=== PATIENT | male | born 1975 | race African-American/Black ===

== ENCOUNTER 2023-02-12 11:02 | Inpatient (IN) | payer OTHER ==
[2023-02-12 16:27] VITALS: BMI 18.1
[2023-02-12] MEDS ORDERED: DICYCLOMINE HCL 10 MG CAPSULE PO PRN (17:20)
[2023-02-12] MEDS ORDERED: BENZONATATE 200 MG CAPSULE PO PRN (17:20)
[2023-02-12] MEDS ORDERED: BENZOCAINE/MENTHOL (CHLORASEPTIC ) LOZENGE MM PRN (17:20)
[2023-02-12] MEDS ORDERED: BISMUTH SUBSALICYLATE 524 MG/30 ML PO PRN (17:20)
[2023-02-12] MEDS ORDERED: hydrOXYzine PAMOATE 25 MG CAPSULE (FP) PO PRN (17:20)
[2023-02-12] MEDS ORDERED: POLYETHYLENE GLYCOL (HEALTHYLAX) 3350 17 GM PACKET PO PRN (17:20)
[2023-02-12] MEDS ORDERED: NALOXONE HCL 0.4 MG/ML VIAL IM PRN (17:20)
[2023-02-12] MEDS ORDERED: MAG HYDROX/AL HYDROX/SIMETH 30 ML UNIT-DOSE CUP PO PRN (17:20)
[2023-02-12] MEDS ORDERED: IBUPROFEN 600 MG TABLET (FP) PO PRN (17:20)
[2023-02-12] MEDS ORDERED: MAGNESIUM HYDROX 2400MG/30ML ORAL SUSPENSION 30 ML CUP PO PRN (17:20)
[2023-02-12] MEDS ORDERED: NICOTINE 10 MG CARTRIDGE (INHALER) IH PRN (17:20)
[2023-02-12] MEDS ORDERED: guaiFENesin 600 MG TABLET.ER (FP) PO PRN (17:20)
[2023-02-12] MEDS ORDERED: METHOCARBAMOL 500 MG TABLET PO PRN (17:20)
[2023-02-12] MEDS ORDERED: NALOXONE HCL (KLOXXADO) 8 MG SPRAY NS PRN (17:20)
[2023-02-12] MEDS ORDERED: IBUPROFEN 400 MG TABLET (FP) PO PRN (17:20)
[2023-02-12] MEDS ORDERED: ACETAMINOPHEN 325 MG TABLET (FP) PO PRN (17:20)
[2023-02-12] MEDS ORDERED: ONDANSETRON *ODT* 4 MG TABLET SL PRN (17:20)
[2023-02-12] MEDS ORDERED: LOPERAMIDE HCL 2 MG CAPSULE PO PRN (17:20)
[2023-02-12] MEDS: NICOTINE 14 MG/24 HOURS TOPICAL PATCH TD SCH (18:26)
[2023-02-12] MEDS: PRENATAL VITAMINS W/ FOLIC ACID TABLET (FP) PO SCH (18:26)
[2023-02-12] MEDS: MELATONIN 5 MG TABLETS PO SCH (22:30)
[2023-02-12] MEDS: THIAMINE HCL 100 MG TABLET (FP) PO SCH (22:30)
[2023-02-13] MEDS ORDERED: chlordiazePOXIDE HCL 25 MG CAPSULE PO PRN (09:00)
[2023-02-13] MEDS: PRENATAL VITAMINS W/ FOLIC ACID TABLET (FP) PO SCH (10:14)
[2023-02-13] MEDS: chlordiazePOXIDE HCL 25 MG CAPSULE PO SCH ×3 (10:14→22:22)
[2023-02-13] MEDS: NICOTINE 14 MG/24 HOURS TOPICAL PATCH TD SCH (10:14)
[2023-02-13 11:53] LABS: HEMATOCRIT 36.1 % (35.4-49); HEMOGLOBIN 12.2 GM/dL (11.7-16.9); MCH 32.3 pg (25.7-33.7); MCHC 33.6 g/dl (32.0-35.9); MEAN PLT VOLUME 10.8 fl (7.5-11.1); PLATELET COUNT 92 10^3/uL (134-434); RBC 3.77 M/mm3 (4.00-5.60); RDW 15.4 % (11.9-15.9); WHITE BLOOD COUNT 3.6 K/mm3 (4.0-10.0)
[2023-02-13 12:30] LABS: POTASSIUM 4.1 mmol/L (3.5-5.1)
[2023-02-13 12:34] LABS: ALBUMIN 3.5 g/dl (3.4-5.0); CALCIUM 9.4 mg/dL (8.5-10.1)
[2023-02-13 12:38] LABS: CREATININE 0.8 mg/dL (0.55-1.3)
[2023-02-13 12:39] LABS: BILIRUBIN,TOTAL 1.9 mg/dL (0.2-1); TOT PROT 6.6 g/dl (6.4-8.2)
[2023-02-13] MEDS: AMOXICILLIN 500 MG CAPSULE (FP) PO SCH ×2 (13:46→22:22)
[2023-02-13] MEDS: MELATONIN 5 MG TABLETS PO SCH (22:22)
[2023-02-13] MEDS: THIAMINE HCL 100 MG TABLET (FP) PO SCH (22:22)
[2023-02-14] MEDS: AMOXICILLIN 500 MG CAPSULE (FP) PO SCH (05:26)
[2023-02-14] MEDS: chlordiazePOXIDE HCL 25 MG CAPSULE PO SCH ×2 (05:26→10:33)
[2023-02-14 06:10] VITALS: RESP 16
[2023-02-14 09:29] VITALS: BP 122/77; PULSE 80; TEMP 97.8
[2023-02-14] MEDS: NICOTINE 14 MG/24 HOURS TOPICAL PATCH TD SCH (10:33)
[2023-02-14] MEDS: PRENATAL VITAMINS W/ FOLIC ACID TABLET (FP) PO SCH (10:33)
[2023-02-14 12:06] LABS: POTASSIUM 4.1 mmol/L (3.5-5.1)
[2023-02-14 12:11] LABS: ALBUMIN 3.4 g/dl (3.4-5.0); BLOOD UREA NITROGEN 12.6 mg/dL (7-18); CALCIUM 9.6 mg/dL (8.5-10.1)
[2023-02-14 12:14] LABS: CREATININE 0.7 mg/dL (0.55-1.3)
[2023-02-14 12:16] LABS: BILIRUBIN,TOTAL 1.2 mg/dL (0.2-1); TOT PROT 6.8 g/dl (6.4-8.2)
[2023-02-15] MEDS ORDERED: chlordiazePOXIDE HCL 25 MG CAPSULE PO SCH (05:00)
[2023-02-16] MEDS ORDERED: chlordiazePOXIDE HCL 10 MG CAPSULE PO PRN
[2023-02-16] MEDS ORDERED: chlordiazePOXIDE HCL 10 MG CAPSULE PO SCH (05:00)
[2023-02-17] MEDS ORDERED: chlordiazePOXIDE HCL 10 MG CAPSULE PO SCH (05:00)
[2023-02-18] MEDS ORDERED: chlordiazePOXIDE HCL 10 MG CAPSULE PO ONE (05:00)
== END 2023-02-14 10:38 | disposition left against medical advice (07) | DRG 770 ==
LOC: YASAS 11:02 → Y3N 17:25
PROVIDERS: ADMIT Allergy & Immunology; ATTEND Surgery
PROC: HZ2ZZZZ Detoxification Services for Substance Abuse Treatment (ICD-10-PCS; principal; 2023-02-12)
DX: F10.230 Alcohol dependence with withdrawal, uncomplicated (principal); F12.20 Cannabis dependence, uncomplicated; F17.210 Nicotine dependence, cigarettes, uncomplicated; F41.9 Anxiety disorder, unspecified; F32.A Depression, unspecified; R74.8 Abnormal levels of other serum enzymes; S01.01XD Laceration without foreign body of scalp, subsequent encounter; S01.511D Laceration without foreign body of lip, subsequent encounter; L08.9 Local infection of the skin and subcutaneous tissue, unspecified; Y08.89XD Assault by other specified means, subsequent encounter
CPT/HCPCS: 36415; 70450-TC; 80053; 85027; 86780; 87635; 93005; 93010; 99283-25

== ENCOUNTER 2023-05-03 14:50 | Inpatient (IN) | payer OTHER ==
[2023-05-03] MEDS ORDERED: COLLOIDAL OATMEAL 1 BAR EACH TP PRN (16:03)
[2023-05-03] MEDS ORDERED: NALOXONE HCL (KLOXXADO) 8 MG SPRAY NS PRN (16:03)
[2023-05-03] MEDS ORDERED: guaiFENesin 600 MG TABLET.ER (FP) PO PRN (16:03)
[2023-05-03] MEDS ORDERED: POLYETHYLENE GLYCOL (HEALTHYLAX) 3350 17 GM PACKET PO PRN (16:03)
[2023-05-03] MEDS ORDERED: IBUPROFEN 600 MG TABLET (FP) PO PRN (16:03)
[2023-05-03] MEDS ORDERED: ACETAMINOPHEN 325 MG TABLET (FP) PO PRN (16:03)
[2023-05-03] MEDS ORDERED: NALOXONE HCL 0.4 MG/ML VIAL IVPUSH PRN (16:03)
[2023-05-03] MEDS ORDERED: IBUPROFEN 400 MG TABLET (FP) PO PRN (16:03)
[2023-05-03] MEDS ORDERED: MAGNESIUM HYDROX 2400MG/30ML ORAL SUSPENSION 30 ML CUP PO PRN (16:03)
[2023-05-03] MEDS ORDERED: BENZONATATE 200 MG CAPSULE PO PRN (16:03)
[2023-05-03] MEDS ORDERED: BACLOFEN 10 MG TABLET (FP) PO PRN (16:03)
[2023-05-03] MEDS ORDERED: LOPERAMIDE HCL 2 MG CAPSULE PO PRN (16:03)
[2023-05-03] MEDS ORDERED: BENZOCAINE/MENTHOL (CHLORASEPTIC ) LOZENGE MM PRN (16:03)
[2023-05-03] MEDS ORDERED: MAG HYDROX/AL HYDROX/SIMETH 30 ML UNIT-DOSE CUP PO PRN (16:03)
[2023-05-03] MEDS: NICOTINE POLACRILEX 4 MG GUM BUC PRN ×2 (19:08→21:35)
[2023-05-03] MEDS: hydrOXYzine PAMOATE 25 MG CAPSULE (FP) PO PRN (19:10)
[2023-05-03] MEDS: MELATONIN 5 MG TABLETS PO SCH (21:33)
[2023-05-03] MEDS: GABAPENTIN 100 MG CAPSULE PO SCH (21:34)
[2023-05-03] MEDS: THIAMINE HCL 100 MG TABLET (FP) PO SCH (21:34)
[2023-05-03] MEDS: MIRTAZAPINE 30 MG TABLET PO SCH (21:34)
[2023-05-03] MEDS ORDERED: MIRTAZAPINE 15 MG TABLET (FP) PO SCH (22:00)
[2023-05-04] MEDS: NICOTINE POLACRILEX 4 MG GUM BUC PRN ×3 (07:02→18:03)
[2023-05-04] MEDS: GABAPENTIN 100 MG CAPSULE PO SCH ×3 (07:02→21:33)
[2023-05-04] MEDS: PRENATAL VITAMINS W/ FOLIC ACID TABLET (FP) PO SCH (10:47)
[2023-05-04] MEDS: hydrOXYzine PAMOATE 25 MG CAPSULE (FP) PO PRN ×2 (10:50→19:40)
[2023-05-04] MEDS: NICOTINE 21 MG/24 HOURS TOPICAL PATCH TD SCH (10:51)
[2023-05-04 11:51] LABS: HIV INTERPRETATION NEGATIVE (NEGATIVE)
[2023-05-04] MEDS: THIAMINE HCL 100 MG TABLET (FP) PO SCH (21:33)
[2023-05-04] MEDS: MIRTAZAPINE 30 MG TABLET PO SCH (21:33)
[2023-05-04] MEDS: MELATONIN 5 MG TABLETS PO SCH (21:33)
[2023-05-05] MEDS: NICOTINE POLACRILEX 4 MG GUM BUC PRN ×4 (06:49→21:41)
[2023-05-05] MEDS: GABAPENTIN 100 MG CAPSULE PO SCH ×3 (06:49→21:39)
[2023-05-05] MEDS: NICOTINE 21 MG/24 HOURS TOPICAL PATCH TD SCH (10:04)
[2023-05-05] MEDS: PRENATAL VITAMINS W/ FOLIC ACID TABLET (FP) PO SCH (10:04)
[2023-05-05] MEDS: hydrOXYzine PAMOATE 25 MG CAPSULE (FP) PO PRN (10:05)
[2023-05-05] MEDS: MIRTAZAPINE 30 MG TABLET PO SCH (21:39)
[2023-05-05] MEDS: MELATONIN 5 MG TABLETS PO SCH (21:39)
[2023-05-05] MEDS: THIAMINE HCL 100 MG TABLET (FP) PO SCH (21:40)
[2023-05-06] MEDS: GABAPENTIN 100 MG CAPSULE PO SCH ×3 (06:49→21:36)
[2023-05-06] MEDS: NICOTINE POLACRILEX 4 MG GUM BUC PRN ×3 (06:49→18:37)
[2023-05-06] MEDS: PRENATAL VITAMINS W/ FOLIC ACID TABLET (FP) PO SCH (10:07)
[2023-05-06] MEDS: NICOTINE 21 MG/24 HOURS TOPICAL PATCH TD SCH (10:07)
[2023-05-06] MEDS: hydrOXYzine PAMOATE 25 MG CAPSULE (FP) PO PRN (10:08)
[2023-05-06] MEDS: LACTULOSE 20 GM/30 ML UDC (FOR ORAL USE ONLY) PO SCH ×3 (13:45→21:36)
[2023-05-06] MEDS: MELATONIN 5 MG TABLETS PO SCH (21:33)
[2023-05-06] MEDS: THIAMINE HCL 100 MG TABLET (FP) PO SCH (21:33)
[2023-05-06] MEDS: MIRTAZAPINE 30 MG TABLET PO SCH (21:36)
[2023-05-07] MEDS: NICOTINE POLACRILEX 4 MG GUM BUC PRN ×5 (01:39→21:33)
[2023-05-07] MEDS: GABAPENTIN 100 MG CAPSULE PO SCH ×3 (06:59→21:32)
[2023-05-07] MEDS: LACTULOSE 20 GM/30 ML UDC (FOR ORAL USE ONLY) PO SCH ×4 (10:15→21:32)
[2023-05-07] MEDS: NICOTINE 21 MG/24 HOURS TOPICAL PATCH TD SCH (10:15)
[2023-05-07] MEDS: PRENATAL VITAMINS W/ FOLIC ACID TABLET (FP) PO SCH (10:15)
[2023-05-07] MEDS: hydrOXYzine PAMOATE 25 MG CAPSULE (FP) PO PRN (10:16)
[2023-05-07] MEDS: NALTREXONE HCL 50 MG TABLET PO SCH (14:52)
[2023-05-07] MEDS: MELATONIN 5 MG TABLETS PO SCH (21:32)
[2023-05-07] MEDS: THIAMINE HCL 100 MG TABLET (FP) PO SCH (21:32)
[2023-05-07] MEDS: MIRTAZAPINE 30 MG TABLET PO SCH (21:32)
[2023-05-08] MEDS: GABAPENTIN 100 MG CAPSULE PO SCH ×3 (06:05→21:50)
[2023-05-08] MEDS: NICOTINE POLACRILEX 4 MG GUM BUC PRN ×5 (07:14→18:09)
[2023-05-08] MEDS: LACTULOSE 20 GM/30 ML UDC (FOR ORAL USE ONLY) PO SCH ×4 (10:09→21:50)
[2023-05-08] MEDS: NALTREXONE HCL 50 MG TABLET PO SCH (10:10)
[2023-05-08] MEDS: PRENATAL VITAMINS W/ FOLIC ACID TABLET (FP) PO SCH (10:10)
[2023-05-08] MEDS: NICOTINE 21 MG/24 HOURS TOPICAL PATCH TD SCH (10:10)
[2023-05-08] MEDS: hydrOXYzine PAMOATE 25 MG CAPSULE (FP) PO PRN (15:00)
[2023-05-08] MEDS: THIAMINE HCL 100 MG TABLET (FP) PO SCH (21:50)
[2023-05-08] MEDS: MELATONIN 5 MG TABLETS PO SCH (21:50)
[2023-05-08] MEDS: MIRTAZAPINE 30 MG TABLET PO SCH (21:50)
[2023-05-09] MEDS: GABAPENTIN 100 MG CAPSULE PO SCH ×3 (06:25→21:26)
[2023-05-09] MEDS: NICOTINE POLACRILEX 4 MG GUM BUC PRN ×4 (06:27→18:57)
[2023-05-09] MEDS: NICOTINE 21 MG/24 HOURS TOPICAL PATCH TD SCH (09:58)
[2023-05-09] MEDS: LACTULOSE 20 GM/30 ML UDC (FOR ORAL USE ONLY) PO SCH ×4 (09:58→21:26)
[2023-05-09] MEDS: PRENATAL VITAMINS W/ FOLIC ACID TABLET (FP) PO SCH (09:58)
[2023-05-09] MEDS: NALTREXONE HCL 50 MG TABLET PO SCH (09:59)
[2023-05-09] MEDS: THIAMINE HCL 100 MG TABLET (FP) PO SCH (21:26)
[2023-05-09] MEDS: MELATONIN 5 MG TABLETS PO SCH (21:26)
[2023-05-09] MEDS: MIRTAZAPINE 30 MG TABLET PO SCH (21:26)
[2023-05-10] MEDS: GABAPENTIN 100 MG CAPSULE PO SCH ×3 (06:50→21:38)
[2023-05-10] MEDS: NICOTINE POLACRILEX 4 MG GUM BUC PRN ×3 (06:51→21:40)
[2023-05-10] MEDS: LACTULOSE 20 GM/30 ML UDC (FOR ORAL USE ONLY) PO SCH ×4 (10:17→21:38)
[2023-05-10] MEDS: NICOTINE 21 MG/24 HOURS TOPICAL PATCH TD SCH (10:17)
[2023-05-10] MEDS: hydrOXYzine PAMOATE 25 MG CAPSULE (FP) PO PRN (10:17)
[2023-05-10] MEDS: PRENATAL VITAMINS W/ FOLIC ACID TABLET (FP) PO SCH (10:18)
[2023-05-10] MEDS: NALTREXONE HCL 50 MG TABLET PO SCH (10:18)
[2023-05-10] MEDS: MELATONIN 5 MG TABLETS PO SCH (21:38)
[2023-05-10] MEDS: THIAMINE HCL 100 MG TABLET (FP) PO SCH (21:38)
[2023-05-10] MEDS: MIRTAZAPINE 30 MG TABLET PO SCH (21:38)
[2023-05-11] MEDS: GABAPENTIN 100 MG CAPSULE PO SCH ×3 (06:02→21:28)
[2023-05-11] MEDS: NICOTINE POLACRILEX 4 MG GUM BUC PRN ×5 (06:03→21:29)
[2023-05-11] MEDS: LACTULOSE 20 GM/30 ML UDC (FOR ORAL USE ONLY) PO SCH ×4 (09:08→21:29)
[2023-05-11] MEDS: NICOTINE 21 MG/24 HOURS TOPICAL PATCH TD SCH (09:08)
[2023-05-11] MEDS: PRENATAL VITAMINS W/ FOLIC ACID TABLET (FP) PO SCH (09:08)
[2023-05-11] MEDS: NALTREXONE HCL 50 MG TABLET PO SCH (09:09)
[2023-05-11] MEDS: hydrOXYzine PAMOATE 25 MG CAPSULE (FP) PO PRN (16:01)
[2023-05-11] MEDS: MELATONIN 5 MG TABLETS PO SCH (21:27)
[2023-05-11] MEDS: MIRTAZAPINE 30 MG TABLET PO SCH (21:28)
[2023-05-11] MEDS: THIAMINE HCL 100 MG TABLET (FP) PO SCH (21:28)
[2023-05-12] MEDS: GABAPENTIN 100 MG CAPSULE PO SCH ×3 (06:38→21:30)
[2023-05-12] MEDS: NICOTINE POLACRILEX 4 MG GUM BUC PRN ×4 (06:40→16:21)
[2023-05-12] MEDS: PRENATAL VITAMINS W/ FOLIC ACID TABLET (FP) PO SCH (10:09)
[2023-05-12] MEDS: LACTULOSE 20 GM/30 ML UDC (FOR ORAL USE ONLY) PO SCH ×4 (10:09→21:31)
[2023-05-12] MEDS: NICOTINE 21 MG/24 HOURS TOPICAL PATCH TD SCH (10:09)
[2023-05-12] MEDS: NALTREXONE HCL 50 MG TABLET PO SCH (10:10)
[2023-05-12] MEDS: hydrOXYzine PAMOATE 25 MG CAPSULE (FP) PO PRN (10:10)
[2023-05-12] MEDS: MELATONIN 5 MG TABLETS PO SCH (21:30)
[2023-05-12] MEDS: THIAMINE HCL 100 MG TABLET (FP) PO SCH (21:30)
[2023-05-12] MEDS: MIRTAZAPINE 30 MG TABLET PO SCH (21:30)
[2023-05-13] MEDS: GABAPENTIN 100 MG CAPSULE PO SCH ×3 (06:53→21:34)
[2023-05-13] MEDS: NICOTINE POLACRILEX 4 MG GUM BUC PRN ×3 (07:28→21:37)
[2023-05-13] MEDS: NICOTINE 21 MG/24 HOURS TOPICAL PATCH TD SCH (10:33)
[2023-05-13] MEDS: PRENATAL VITAMINS W/ FOLIC ACID TABLET (FP) PO SCH (10:33)
[2023-05-13] MEDS: NALTREXONE HCL 50 MG TABLET PO SCH (10:33)
[2023-05-13] MEDS: LACTULOSE 20 GM/30 ML UDC (FOR ORAL USE ONLY) PO SCH ×4 (10:34→21:34)
[2023-05-13] MEDS: hydrOXYzine PAMOATE 25 MG CAPSULE (FP) PO PRN (10:34)
[2023-05-13] MEDS: MIRTAZAPINE 30 MG TABLET PO SCH (21:34)
[2023-05-13] MEDS: THIAMINE HCL 100 MG TABLET (FP) PO SCH (21:34)
[2023-05-13] MEDS: MELATONIN 5 MG TABLETS PO SCH (21:34)
[2023-05-14] MEDS: GABAPENTIN 100 MG CAPSULE PO SCH ×3 (06:31→21:14)
[2023-05-14] MEDS: NICOTINE POLACRILEX 4 MG GUM BUC PRN ×4 (06:31→15:49)
[2023-05-14] MEDS: NICOTINE 21 MG/24 HOURS TOPICAL PATCH TD SCH (09:38)
[2023-05-14] MEDS: PRENATAL VITAMINS W/ FOLIC ACID TABLET (FP) PO SCH (09:38)
[2023-05-14] MEDS: LACTULOSE 20 GM/30 ML UDC (FOR ORAL USE ONLY) PO SCH ×4 (09:38→21:46)
[2023-05-14] MEDS: NALTREXONE HCL 50 MG TABLET PO SCH (09:39)
[2023-05-14] MEDS: THIAMINE HCL 100 MG TABLET (FP) PO SCH (21:14)
[2023-05-14] MEDS: MIRTAZAPINE 30 MG TABLET PO SCH (21:14)
[2023-05-14] MEDS: MELATONIN 5 MG TABLETS PO SCH (21:47)
[2023-05-15] MEDS: GABAPENTIN 100 MG CAPSULE PO SCH ×3 (06:56→21:31)
[2023-05-15 07:15] VITALS: RESP 18
[2023-05-15] MEDS: LACTULOSE 20 GM/30 ML UDC (FOR ORAL USE ONLY) PO SCH ×4 (09:37→21:31)
[2023-05-15] MEDS: NICOTINE 21 MG/24 HOURS TOPICAL PATCH TD SCH (09:38)
[2023-05-15] MEDS: NALTREXONE HCL 50 MG TABLET PO SCH (09:38)
[2023-05-15] MEDS: PRENATAL VITAMINS W/ FOLIC ACID TABLET (FP) PO SCH (09:38)
[2023-05-15] MEDS: NICOTINE POLACRILEX 4 MG GUM BUC PRN ×3 (09:40→20:39)
[2023-05-15] MEDS: MIRTAZAPINE 30 MG TABLET PO SCH (21:31)
[2023-05-15] MEDS: MELATONIN 5 MG TABLETS PO SCH (21:31)
[2023-05-15] MEDS: THIAMINE HCL 100 MG TABLET (FP) PO SCH (21:31)
[2023-05-16] MEDS: NICOTINE POLACRILEX 4 MG GUM BUC PRN ×3 (07:00→21:35)
[2023-05-16] MEDS: GABAPENTIN 100 MG CAPSULE PO SCH ×3 (07:00→21:34)
[2023-05-16] MEDS: PRENATAL VITAMINS W/ FOLIC ACID TABLET (FP) PO SCH (09:46)
[2023-05-16] MEDS: NICOTINE 21 MG/24 HOURS TOPICAL PATCH TD SCH (09:46)
[2023-05-16] MEDS: LACTULOSE 20 GM/30 ML UDC (FOR ORAL USE ONLY) PO SCH ×3 (09:46→21:34)
[2023-05-16] MEDS: NALTREXONE HCL 50 MG TABLET PO SCH (09:46)
[2023-05-16] MEDS: THIAMINE HCL 100 MG TABLET (FP) PO SCH (21:34)
[2023-05-16] MEDS: MIRTAZAPINE 30 MG TABLET PO SCH (21:34)
[2023-05-16] MEDS: MELATONIN 5 MG TABLETS PO SCH (21:35)
[2023-05-17] MEDS: GABAPENTIN 100 MG CAPSULE PO SCH ×3 (06:26→21:30)
[2023-05-17] MEDS: NICOTINE POLACRILEX 4 MG GUM BUC PRN ×4 (06:27→19:36)
[2023-05-17] MEDS: NICOTINE 21 MG/24 HOURS TOPICAL PATCH TD SCH (09:31)
[2023-05-17] MEDS: NALTREXONE HCL 50 MG TABLET PO SCH (09:31)
[2023-05-17] MEDS: PRENATAL VITAMINS W/ FOLIC ACID TABLET (FP) PO SCH (09:31)
[2023-05-17] MEDS: LACTULOSE 20 GM/30 ML UDC (FOR ORAL USE ONLY) PO SCH ×4 (09:31→21:29)
[2023-05-17] MEDS: MELATONIN 5 MG TABLETS PO SCH (21:30)
[2023-05-17] MEDS: MIRTAZAPINE 30 MG TABLET PO SCH (21:30)
[2023-05-17] MEDS: THIAMINE HCL 100 MG TABLET (FP) PO SCH (21:30)
[2023-05-18] MEDS: NICOTINE POLACRILEX 4 MG GUM BUC PRN ×3 (07:00→18:08)
[2023-05-18] MEDS: GABAPENTIN 100 MG CAPSULE PO SCH ×3 (07:00→21:17)
[2023-05-18] MEDS: PRENATAL VITAMINS W/ FOLIC ACID TABLET (FP) PO SCH (09:55)
[2023-05-18] MEDS: LACTULOSE 20 GM/30 ML UDC (FOR ORAL USE ONLY) PO SCH ×4 (09:55→21:16)
[2023-05-18] MEDS: NICOTINE 21 MG/24 HOURS TOPICAL PATCH TD SCH (09:55)
[2023-05-18] MEDS: NALTREXONE HCL 50 MG TABLET PO SCH (09:55)
[2023-05-18] MEDS: MELATONIN 5 MG TABLETS PO SCH (21:16)
[2023-05-18] MEDS: THIAMINE HCL 100 MG TABLET (FP) PO SCH (21:17)
[2023-05-18] MEDS: MIRTAZAPINE 30 MG TABLET PO SCH (21:17)
[2023-05-19] MEDS: NICOTINE POLACRILEX 4 MG GUM BUC PRN ×5 (06:43→21:16)
[2023-05-19] MEDS: GABAPENTIN 100 MG CAPSULE PO SCH ×3 (06:43→21:14)
[2023-05-19] MEDS: PRENATAL VITAMINS W/ FOLIC ACID TABLET (FP) PO SCH (09:48)
[2023-05-19] MEDS: LACTULOSE 20 GM/30 ML UDC (FOR ORAL USE ONLY) PO SCH ×4 (09:48→21:51)
[2023-05-19] MEDS: NICOTINE 21 MG/24 HOURS TOPICAL PATCH TD SCH (09:48)
[2023-05-19] MEDS: NALTREXONE HCL 50 MG TABLET PO SCH (09:48)
[2023-05-19] MEDS: MIRTAZAPINE 30 MG TABLET PO SCH (21:14)
[2023-05-19] MEDS: THIAMINE HCL 100 MG TABLET (FP) PO SCH (21:14)
[2023-05-19] MEDS: MELATONIN 5 MG TABLETS PO SCH (21:14)
[2023-05-20] MEDS: GABAPENTIN 100 MG CAPSULE PO SCH ×2 (07:04→13:52)
[2023-05-20] MEDS: NICOTINE POLACRILEX 4 MG GUM BUC PRN ×3 (07:05→12:36)
[2023-05-20 07:18] VITALS: BP 134/69; PULSE 72; TEMP 97.1
[2023-05-20] MEDS: LACTULOSE 20 GM/30 ML UDC (FOR ORAL USE ONLY) PO SCH ×2 (09:48→13:52)
[2023-05-20] MEDS: NALTREXONE HCL 50 MG TABLET PO SCH (09:49)
[2023-05-20] MEDS: NICOTINE 21 MG/24 HOURS TOPICAL PATCH TD SCH (09:49)
[2023-05-20] MEDS: PRENATAL VITAMINS W/ FOLIC ACID TABLET (FP) PO SCH (09:49)
== END 2023-05-20 02:40 | disposition home or self-care (01) | DRG 772 ==
LOC: YASAS 14:50 → Y5N 14:59
PROVIDERS: ADMIT Allergy & Immunology; ATTEND Psychiatry & Neurology Pain Medicine
PROC: HZ42ZZZ Group Counseling for Substance Abuse Treatment, Cognitive-Behavioral (ICD-10-PCS; principal; 2023-05-03)
DX: F10.20 Alcohol dependence, uncomplicated (principal); F12.20 Cannabis dependence, uncomplicated; F17.210 Nicotine dependence, cigarettes, uncomplicated; F41.9 Anxiety disorder, unspecified; F32.A Depression, unspecified; E72.20 Disorder of urea cycle metabolism, unspecified; Z56.0 Unemployment, unspecified; Z59.00 Homelessness unspecified
CPT/HCPCS: 36415; 82140; 86803; 87389